=== PATIENT | female | born 1990 | race Hispanic/Latino ===

== ENCOUNTER 2020-01-16 23:16 | Emergency (ER) | payer SELFPAY ==
[2020-01-16 23:17] VITALS: BP 147/90; PULSE 102; RESP 22; TEMP 37.2; O2SAT 99
--- NOTE | 2020-01-16 23:24 | ECG_ITS ---
Measurements Intervals [place] Rate: 109 P: 28 MS: 160 QRS: 17 QRSD: 97 T: 18 QT: 332 QTc: 447 Interpretive Statements SINUS TACHYCARDIA BASELINE WANDER- I, II ABNORMAL ECG Electronically Signed On 01-17-2020 7:00:[address] Trejo D.O.
[2020-01-16 23:45] VITALS: PULSE 84
[2020-01-16 23:48] LABS: Basophils Absolute Auto 0.1 K/mm3 (0.0-0.1); Basophils Percent Auto 0.6 % (0.2-1.2); Eosinophils Absolute Auto 0.8 K/mm3 (0-0.3); Eosinophils Percent Auto 6.3 % (0-4.4); Hematocrit 40.3 % (37.0-47.0); Hemoglobin 13.6 g/dL (12.0-15.0); Immature Granulocyte Percent A 0.8 % (0-0.5); Lymphocytes Absolute Auto 3.53 K/mm3 (0.9-3.2); Lymphocytes Percent Auto 28.3 % (18.3-44.2); Mean Corpuscular HGB Conc 33.7 g/dl (32-36); Mean Corpuscular Hemoglobin 28.2 pg (26-34); Mean Corpuscular Volume 83.6 fl (80-100); Mean Platelet Volume 10.4 fl (7.4-10.4); Monocytes Absolute Auto 0.7 K/mm3 (0.1-0.6); Monocytes Percent Auto 5.4 % (2.6-8.5); Neutrophils Absolute Auto 7.3 K/mm3 (1.3-6.7); Neutrophils Percent Auto 58.6 % (45.5-73.1); Platelet Count Result 287 k/mm3 (150-375); Red Blood Count 4.82 M/mm3 (4.2-5.4); Red Cell Distribution Width 12.9 % (11.5-14.5); White Blood Count 12.5 K/mm3 (4.5-10.0)
--- NOTE | 2020-01-16 23:49 | ED.ANXIETY ---
HPI - Anxiety General Chief Complaint: Syncope Stated Complaint: lightheaded Time Seen by Provider: 01/16/20 23:23 Source: patient and RN notes reviewed Mode of arrival: ambulatory Limitations: no limitations History of Present Illness HPI narrative: Pt is a 29 y/o female with a Hx of anxiety, who presents to the ED with c/o anxiety starting earlier today. She notes that she is prescribed Prozac, but states that she hasn't taken the medication for the past 2-3 weeks. Pt notes that she has had anxiety and shakiness throughout the day today. She states that she ate a sugary cake this evening, which caused her BS to elevate. Pt notes that she soon developed numbness/tingling in her throat, which prompted her to come to the ED. She also reports recent rhinorrhea, sore throat, cough, and diarrhea. Pt denies any fever. She states that she smoked marijuana earlier today to try to reduce her anxiety. MD complaint: anxiety Onset (ago): day(s) (1) Symptoms: perioral numbness/tingling and other (shakiness) Provoking factors: other (lack of prescribed Prozac) Associated symptoms: other (rhinorrhea; sore throat; cough; diarrhea) Related Data Allergies Allergy/AdvReac Type Severity Reaction Status Date / Time No Known Allergies Allergy Mild Unverified 08/09/14 18:23 Review of Systems Review of Systems: All systems reviewed & are unremarkable except as noted in HPI and below Constitutional: Constitutional: Denies fever(s) and Reports other (shakiness) ENT: Reports nasal discharge and Reports sore throat Respiratory: Respiratory: Reports cough Gastrointestinal: Gastrointestinal: Reports diarrhea Neurologic: Reports numbness (numbness/tingling in throat) Psychiatric: Psychiatric: Reports anxiety [facility] Past Medical History Medical History Anxiety HTN (hypertension) Inguinal hernia Surgical History Surgical History Hx of inguinal hernia repair Social History Social History Smoking status: Never smoker Exam Narrative: Exam Narrative: GENERAL: Well-appearing, obese, and in no acute distress. HEAD: Normocephalic, atraumatic. ENT: Mucous membranes moist. No pharyngeal erythema or tonsillar exudate. CHEST: Clear to auscultation. No respiratory distress. HEART: Regular rate and rhythm. Normal peripheral pulses. ABDOMEN: Soft, nontender, nondistended. EXTREMITIES: Normal range of motion. No edema. SKIN: Warm, dry, no rash. NEURO: Alert and oriented x3. PSYCH: Normal mood and affect. Course Course Emergency Course: Informed of results. Hydrated. Discharge home. Vital Signs Vital signs: Vital Signs Temperature 98.9 F 01/16/20 23:17 Pulse Rate 102 H 01/16/20 23:17 Respiratory Rate 22 H 01/16/20 23:17 Blood Pressure 147/90 H 01/16/20 23:17 Pulse Oximetry 99 01/16/20 23:17 Temperature 98.9 F 01/16/20 23:17 Pulse Rate 96 01/17/20 00:40 Respiratory Rate 20 01/17/20 00:40 Blood Pressure 111/67 01/17/20 00:40 Pulse Oximetry 97 01/17/20 00:40 MDM - Anxiety Lab Data Result diagrams: 01/16/20 23:42 01/16/20 23:42 Labs: Lab Results 01/16/20 01/16/20 01/16/20 Range/Units 23:41 23:42 23:42 WBC 12.5 H (4.5-10.0) K/mm3 RBC 4.82 (4.2-5.4) M/mm3 Hgb 13.6 (12.0-15.0) g/dL Hct 40.3 (37.0-47.0) % MCV 83.6 (80-100) fl MCH 28.2 (26-34) pg MCHC 33.7 (32-36) g/dl RDW 12.9 (11.5-14.5) % Plt Count 287 (150-375) k/mm3 MPV 10.4 (7.4-10.4) fl Immature Gran % (Auto) 0.8 H (0-0.5) % Neut % (Auto) 58.6 (45.5-73.1) % Lymph % (Auto) 28.3 (18.3-44.2) % [place] % (Auto) 5.4 (2.6-8.5) % Eos % (Auto) 6.3 H (0-4.4) % Baso % (Auto) 0.6 (0.2-1.2) % Lymph # (Auto) 3.53 H (0.9-3.2) K/mm3 [place] # (Auto) 0.7 H (0.1-0.6) K/mm3 Eos # (Auto) 0.8 H (0-0.
[2020-01-16 23:56] VITALS: BP 114/75; BP 118/80; PULSE 103; PULSE 110
[2020-01-16 23:58] VITALS: BP 116/71; PULSE 120
[2020-01-16 23:59] VITALS: BP 128/70; PULSE 108
[2020-01-17] VITALS: BP 132/77; BP 137/105; PULSE 121; PULSE 122
[2020-01-17] LABS: Blood Urea Nitrogen 9 mg/dL (7-17); Calcium 9.2 mg/dL (8.4-10.2); Carbon Dioxide 24 mmol/L (22-30); Chloride 105 mmol/L (98-107); Estimated Glomerular Filt Rate > 60; Glucose 151 mg/dL (65-105); Potassium 3.7 mmol/L (3.4-5.0); Sodium 138 mmol/L (137-145)
[2020-01-17] MEDS: SODIUM CHLORIDE 0.9% IV 1,000 ML 999 ML IV CONT (00:24)
[2020-01-17 00:38] LABS: Add Urine Microscopic? YES; Appearance Urine Cloudy (Clear); Bacteria Urine Trace /hpf; Bilirubin Urine Negative (Negative); Blood Urine 2+ (Negative); Color Urine Yellow (Yellow); Glucose Urine UA Negative (Negative); Ketones Urine Negative (Negative); Leukocyte Esterase Ur 3+ LEU/UL (Negative); Mucus Urine Rare /lpf; Nitrate Urine Negative (Negative); Protein Urine Negative (Negative); Specific Grav Ur 1.006 (1.001-1.035); Squamous Epithelial Cell Urine Many /hpf (Few); Urobilinogen Urine Negative mg/dL (<2.0); WBC Urine 31-50 /hpf
[2020-01-17 00:40] VITALS: BP 111/67; PULSE 96; RESP 20; O2SAT 97
[2020-01-17 01:25] VITALS: BP 100/57; PULSE 96; RESP 12; O2SAT 96
== END 2020-01-17 01:25 | disposition home or self-care (01) ==
PROVIDERS: Emergency Provider Emergency Medicine; PCP Registered Nurse
DX: F41.9 Anxiety disorder, unspecified (principal); N39.0 Urinary tract infection, site not specified; I10 Essential (primary) hypertension; R00.0 Tachycardia, unspecified
CPT/HCPCS: 36415; 80048; 81001; 81025; 85025; 87086; 87088; 93005; 96360; 99284; J7030

== ENCOUNTER 2022-10-12 21:59 | Emergency (ER) | payer SELFPAY ==
--- NOTE | ~2022-10-12 | XR_ITS ---
EXAMINATION: XR chest 2V 10/12/2022 22:26 INDICATION: Dizziness. Hypertension. PROCEDURE: 2 view chest COMPARISON: 08/09/2014 FINDINGS: The lungs are clear. The cardiomediastinal silhouette is within normal limits. There are no pleural effusions. There is no pneumothorax suspected. IMPRESSION: 1: NO ACUTE CARDIOPULMONARY DISEASE. Reviewed, dictated and finalized at location A. TRUCTION SPECIALIST
--- NOTE | ~2022-10-12 | CT_ITS ---
EXAMINATION: CTA chest PE protocol DATE: 10/13/2022 00:23 INDICATION: Dizziness, tachycardia, elevated d-dimer TECHNIQUE: Computed tomography angiography (CTA) of the chest was performed with 100 mL Omnipaque-350 intravenous contrast timed to evaluate the pulmonary arteries. Coronal maximum intensity projection 3D-reconstructions were created by the technologist. Automated exposure control and iterative reconst ruction technique were employed. Exam dose: 718.32 mGy-cm total exam DLP. COMPARISON: 10/12/2022 2 view chest FINDINGS: There is moderate opacification the pulmonary arteries. There is respiratory motion which l imits evaluation of the peripheral pulmonary arteries. No central pulmonary embolus is identified. No pulmonary infiltrate or consolidation. No thoracic aortic aneurysm or dissection. No hilar or mediastinal mass lesion or lymphadenopathy. He art size is within normal limits. No pericardial or pleural effusion. Normal morphology of the adrenal glands. Included skeletal structures are unremarkable. IMPRESSION: Limited examination peripheral pulmonary arteries due to motion; no central pulmonary em bolus is identified Reviewed, dictated and finalized at Location [facility]. Reviewed, dictated and finalized at location B. ARMS EXPERT IMPRESSION: Limited examination peripheral pulmonary arteries due to motion; n o central pulmonary embolus is identified
[2022-10-12 22:04] VITALS: BP 136/80; PULSE 93; RESP 20; TEMP 37.1; O2SAT 100
--- NOTE | 2022-10-12 22:04 | ECG_ITS ---
Measurements Intervals [place] Rate: 84 P: 34 CT: 274 QRS: 19 QRSD: 103 T: 32 QT: 310 QTc: 368 Interpretive Statements SINUS RHYTHM WITH SINUS ARRHYTHMIA WITH FIRST DEGREE AV BLOCK NONSPECIFIC ST AND T-WAVE ABNORMALITY COMPARED TO ECG 01/16/2020 23:24:14 SINUS RHYTHM NOW PRESENT SINUS ARRHYTHMIA NOW PRESENT FIRST DEGREE AV BLOCK NOW PRESENT Electronically Signed On 10-13-2022 11:17:03 SUPPLY CHAIN PLANNER by Armin Nielsen M.D.
--- NOTE | 2022-10-12 22:14 | ED.GENADULT ---
HPI - General Adult General Chief complaint: Unspecified Stated complaint: heart palpitations Time Seen by Provider: 10/12/22 22:10 Source: patient Mode of arrival: ambulatory Limitations: no limitations History of Present Illness HPI narrative: This is a 32 year old female that presents to the ER for multiple complaints ongoing today. Reports palpitations, nausea, dizziness, and lightheadedness. Reports pain and paresthesias in her feet. Denies fever, cough, chest pain, abdominal pain, vomiting. Related Data Allergies Allergy/AdvReac Type Severity Reaction Status Date / Time No Known Allergies Allergy Mild Verified 10/12/22 22:09 Review of Systems Review of Systems: CONSTITUTIONAL: Reports chills. Denies fever EYES: Reports visual changes. Denies redness, or discharge. ENT: Denies congestion, sore throat, or otalgia. CARDIOVASCULAR: Reports palpitations. Denies chest pain, or edema. RESPIRATORY: Denies cough or dyspnea. GASTROINTESTINAL: Reports nausea and diarrhea. Denies abdominal pain, vomiting GENITOURINARY: Denies dysuria or hematuria. SKIN: Denies rash NEUROLOGIC: Reports generalized weakness. Denies headache All systems reviewed & are unremarkable except as noted in HPI and below PMFSH Past Medical History Medical History (Updated 10/13/22 @ 02:21 by Mireya Hawkins PA-C) Anxiety History of hyperlipidemia HTN (hypertension) Inguinal hernia Surgical History Surgical History Hx of inguinal hernia repair Social History Social History (Updated 10/12/22 @ 22:36 by Mireya Hawkins PA-C) Smoking status: Never smoker Alcohol intake: never Substance use: never Exam Narrative: GENERAL: Well-appearing, well-nourished, and in no acute distress. HEAD: Normocephalic, atraumatic. EYES: PERRLA and EOMI. ENT: Nares clear, no rhinorrhea or epistaxis. Mucous membranes moist. Oropharynx without tonsillar hypertrophy exudate or other lesions. Bilateral TMs pearly lobo non-bulging NECK: Supple. No adenopathy or masses. CHEST: Clear to auscultation. No respiratory distress. No wheezes rales or rhonchi HEART: Regular rate and rhythm. No murmur heard. Normal peripheral pulses. ABDOMEN: Soft, nontender, nondistended, normal active bowel sounds. EXTREMITIES: Normal range of motion. No edema. Strength equal in bilateral upper and lower extremities (5/5). Normal DP pulses SKIN: Warm, dry, no rash. NEURO: No focal deficits. Alert and oriented x3. Cranial nerves II through XII grossly intact PSYCH: Normal mood and affect Course Vital Signs Vital signs: Vital Signs Temperature 98.8 F 10/12/22 22:04 Pulse Rate 93 10/12/22 22:04 Respiratory Rate 20 10/12/22 22:04 Blood Pressure 136/80 10/12/22 22:04 Pulse Oximetry 100 10/12/22 22:04 Oxygen Delivery Room Air 10/12/22 22:04 Temperature 98.8 F 10/12/22 22:04 Pulse Rate 87 10/13/22 01:04 Respiratory Rate 28 H 10/13/22 01:04 Blood Pressure 127/72 10/12/22 22:16 Pulse Oximetry 97 10/13/22 01:04 Oxygen Delivery Room Air 10/12/22 22:04 Medical Decision Making [facility] Narrative Medical decision making narrative: Patient presents to the emergency department for several symptoms that had been ongoing today. Largely reporting feelings of her heart racing. Patient has remained in normal sinus rhythm while in the ED. Her vitals are stable. She is afebrile and nontoxic-appearing. She is neurologically intact. CBC with mild leukocytosis to 13.4. Hemoglobin is normal. No concerning findings on metabolic panel. UA without evidence of infection, likely a contaminated catch. Influenza and COVID screens are negative. Bedside test is negative. D-dimer was elevated, so CTA of the chest was obtained. No evidence of PE or acute cardiopulmonary abnormality. No concerning changes on EKG compared to her previous EKG. Patient and family updated on case findings. She reports impr
[2022-10-12 22:15] VITALS: BP 127/72; PULSE 83; PULSE 88; RESP 26; O2SAT 99
[2022-10-12 22:16] VITALS: BP 127/72; PULSE 90; RESP 13; O2SAT 100
[2022-10-12 22:23] LABS: Basophils Absolute Auto 0.1 K/mm3 (0.0-0.1); Basophils Percent Auto 0.4 % (0.2-1.2); Eosinophils Absolute Auto 0.2 K/mm3 (0-0.3); Eosinophils Percent Auto 1.1 % (0-4.4); Hematocrit 42.3 % (37.0-47.0); Hemoglobin 14.5 g/dL (12.0-15.0); Immature Granulocyte Absolute 0.04 K/mm3 (0.00-0.031); Immature Granulocyte Percent A 0.3 % (0-0.5); Lymphocytes Absolute Auto 2.63 K/mm3 (0.9-3.2); Lymphocytes Percent Auto 19.7 % (18.3-44.2); Mean Corpuscular HGB Conc 34.3 g/dl (32-36); Mean Corpuscular Hemoglobin 29.1 pg (26-34); Mean Corpuscular Volume 84.8 fl (80-100); Mean Platelet Volume 9.9 fl (7.4-10.4); Monocytes Absolute Auto 0.8 K/mm3 (0.1-0.6); Monocytes Percent Auto 6.2 % (2.6-8.5); Neutrophils Absolute Auto 9.6 K/mm3 (1.3-6.7); Neutrophils Percent Auto 72.3 % (45.5-73.1); Platelet Count Result 295 k/mm3 (150-375); Red Blood Count 4.99 M/mm3 (4.2-5.4); Red Cell Distribution Width 13.1 % (11.5-14.5); White Blood Count 13.4 K/mm3 (4.5-10.0)
[2022-10-12] MEDS: SODIUM CHLORIDE 0.9% IV 1,000 ML 999 ML IV CONT (22:24)
[2022-10-12 22:34] LABS: Alanine Aminotransferase 23 U/L (6-35); Alkaline Phosphatase 57 U/L (38-126); Anion Gap 8 mmol/L (8-16); Aspartate Amino Transferase 25 U/L (14-36); Bilirubin,Total 0.4 mg/dL (0.2-1.3); Blood Urea Nitrogen 16 mg/dL (7-17); Calcium 9.6 mg/dL (8.4-10.2); Carbon Dioxide 34 mmol/L (22-30); Chloride 99 mmol/L (98-107); Estimated CRCL calculation 119 ml/min; Estimated Glomerular Filt Rate > 60; Glucose 111 mg/dL (65-110); Potassium 3.9 mmol/L (3.4-5.0); Sodium 141 mmol/L (137-145)
[2022-10-12 23:10] LABS: Appearance Urine Clear (Clear); Bilirubin Urine Negative (Negative); Blood Urine 3+ (Negative); Color Urine Yellow (Yellow); Glucose Urine UA Negative (Negative); Ketones Urine Negative (Negative); Leukocyte Esterase Ur 1+ LEU/UL (Negative); Nitrate Urine Negative (Negative); Protein Urine 1+ mg/dL (Negative); Urobilinogen Urine 0.2 mg/dL (<2.0); pH Urine 6.5 (5.0-9.0)
[2022-10-12 23:11] LABS: D Dimer 0.49 ug/mL (<0.48)
[2022-10-12 23:13] LABS: Mucus Urine Rare /lpf; RBC Urine 21-50 /hpf (0-2); Squamous Epithelial Cell Urine Occasional /hpf (Few)
[2022-10-12 23:15] VITALS: PULSE 93; RESP 19; O2SAT 100
[2022-10-12] MEDS: ONDANSETRON INJ 4 MG/2 ML VIAL IV PUSH (23:17)
[2022-10-12] MEDS: MECLIZINE HCL 25 MG TABLET PO (23:17)
[2022-10-12 23:28] LABS: Add Urine Microscopic? YES
[2022-10-12 23:30] VITALS: PULSE 91; RESP 22; O2SAT 100
[2022-10-12 23:30] LABS: Influenza A QL RT-PCR Negative (Negative); Influenza B QL RT-PCR Negative (Negative); SARS-CoV-2 RNA PCR Negative
[2022-10-12 23:49] VITALS: PULSE 91; RESP 25; O2SAT 100
[2022-10-13] VITALS: PULSE 79; RESP 25; O2SAT 95
[2022-10-13 00:23] VITALS: PULSE 103; RESP 16; O2SAT 99
[2022-10-13 00:30] VITALS: PULSE 87; RESP 20; O2SAT 98
[2022-10-13 00:45] VITALS: PULSE 85; RESP 19; O2SAT 99
[2022-10-13 01:04] VITALS: PULSE 87; RESP 28; O2SAT 97
== END 2022-10-13 02:34 | disposition home or self-care (01) ==
PROVIDERS: Emergency Provider Physician Assistant; PCP Registered Nurse
DX: R00.2 Palpitations (principal); R42 Dizziness and giddiness; Z20.822 Contact with and (suspected) exposure to COVID-19; E78.5 Hyperlipidemia, unspecified; I10 Essential (primary) hypertension; I44.0 Atrioventricular block, first degree; R94.31 Abnormal electrocardiogram [ECG] [EKG]
CPT/HCPCS: 36415; 71046; 71275; 80053; 81001; 81025; 85025; 85380; 87636; 93005; 96361; 96365; 96375; 99284; A9270; J0131; J2405; J7030; Q9967

== ENCOUNTER 2023-07-30 21:57 | Emergency (ER) | payer SELFPAY ==
--- NOTE | ~2023-07-30 | XR_ITS ---
XR chest 2V DATE: 07/30/2023 22:42 INDICATION: Chest pain with intermittent shortness of breath TECHNIQUE: PA and lateral views COMPARISON: 10/13/2022 CTA chest 10/12/2022 2 view chest FINDINGS: Normal heart size. No hilar or mediastinal enlargement. No pulmonary infiltrate or consolid ation, pleural effusion or pulmonary vascular congestion or pneumothorax. IMPRESSION: No active cardiopulmonary disease Reviewed, dictated and finalized at location A.
--- NOTE | 2023-07-30 22:05 | ECG_ITS ---
Measurements Intervals [place] Rate: 82 P: -18 MT: 144 QRS: 0 QRSD: 104 T: 9 QT: 358 QTc: 419 Interpretive Statements SINUS RHYTHM NORMAL ECG COMPARED TO ECG 10/12/2022 22:11:56 NO SIGNIFICANT CHANGES Electronically Signed On 07-31-2023 6:22:[address] Trejo D.O.
[2023-07-30 22:07] VITALS: BP 136/88; PULSE 79; RESP 18; TEMP 37; O2SAT 98
[2023-07-30 22:39] LABS: Basophils Absolute Auto 0.1 K/mm3 (0.0-0.1); Basophils Percent Auto 0.5 % (0.2-1.2); Eosinophils Absolute Auto 0.4 K/mm3 (0-0.3); Eosinophils Percent Auto 3.1 % (0-4.4); Hematocrit 38.4 % (37.0-47.0); Hemoglobin 12.9 g/dL (12.0-15.0); Immature Granulocyte Absolute 0.06 K/mm3 (0.00-0.031); Immature Granulocyte Percent A 0.5 % (0-0.5); Lymphocytes Absolute Auto 3.57 K/mm3 (0.9-3.2); Lymphocytes Percent Auto 30.5 % (18.3-44.2); Mean Corpuscular HGB Conc 33.6 g/dl (32-36); Mean Corpuscular Hemoglobin 28.5 pg (26-34); Mean Corpuscular Volume 84.8 fl (80-100); Mean Platelet Volume 10.1 fl (7.4-10.4); Monocytes Absolute Auto 0.7 K/mm3 (0.1-0.6); Monocytes Percent Auto 6.3 % (2.6-8.5); Neutrophils Absolute Auto 6.9 K/mm3 (1.3-6.7); Neutrophils Percent Auto 59.1 % (45.5-73.1); Platelet Count Result 303 k/mm3 (150-375); Red Blood Count 4.53 M/mm3 (4.2-5.4); Red Cell Distribution Width 13.2 % (11.5-14.5); White Blood Count 11.7 K/mm3 (4.5-10.0)
[2023-07-30 22:48] LABS: Alanine Aminotransferase 29 U/L (6-35); Albumin Level 4.4 g/dL (3.5-5.1); Alkaline Phosphatase 51 U/L (38-126); Anion Gap 8 mmol/L (8-16); Aspartate Amino Transferase 34 U/L (14-36); Bilirubin,Total 0.3 mg/dL (0.2-1.3); Blood Urea Nitrogen 10 mg/dL (7-17); Calcium 9.1 mg/dL (8.4-10.2); Carbon Dioxide 32 mmol/L (22-30); Chloride 100 mmol/L (98-107); Estimated CRCL calculation 124 ml/min; Estimated Glomerular Filt Rate > 60; Glucose 128 mg/dL (65-110); Lipase 97 U/L (23-300); Sodium 140 mmol/L (137-145)
[2023-07-30 22:54] LABS: INR 0.9; Prothrombin Time 12.9 Seconds (11.1-14.7)
--- NOTE | 2023-07-30 22:54 | PC.NURSE ---
Report given to HI Brnoson. Care of pt transferred.
[2023-07-30 22:55] VITALS: BP 121/64; PULSE 75; RESP 16; O2SAT 99
--- NOTE | 2023-07-30 22:55 | PC.NURSE ---
Assumed care of pt from HI Soares at this time.
[2023-07-30 23:00] LABS: Troponin I < 0.012 ng/mL (0.000-0.034)
[2023-07-30 23:14] VITALS: PULSE 75
[2023-07-30 23:31] VITALS: BP 116/64; PULSE 81; RESP 12; O2SAT 99
[2023-07-30 23:46] VITALS: BP 128/78; PULSE 78; RESP 20; O2SAT 99
[2023-07-31 00:02] VITALS: BP 136/76; PULSE 77; RESP 19; O2SAT 100
--- NOTE | 2023-07-31 00:24 | ED.CHESTPAIN ---
HPI - Chest Pain General Chief Complaint: Chest Pain Stated Complaint: chest pain, short of breath Time Seen by Provider: 07/30/23 23:39 Source: patient Mode of arrival: ambulatory Limitations: no limitations History of Present Illness HPI narrative: This is a 33 year old female that presents to the ER for palpitations. Ongoing over the last couple of days. Reports some discomfort in her chest when this occurs. Denies fever, cough, shortness of breath, or lower extremity edema. Related Data Allergies Allergy/AdvReac Type Severity Reaction Status Date / Time No Known Allergies Allergy Mild Verified 10/12/22 22:09 Review of Systems Review of Systems: CONSTITUTIONAL: Denies fever CARDIOVASCULAR: Reports chest pain, palpitations. Denies edema. RESPIRATORY: Denies dyspnea. All systems reviewed & are unremarkable except as noted in HPI and below PMFSH Past Medical History Medical History (Updated 07/31/23 @ 00:25 by Mireya Hawkins PA-C) Anxiety History of hyperlipidemia HTN (hypertension) Inguinal hernia Surgical History Surgical History Hx of inguinal hernia repair Social History Social History (Updated 10/12/22 @ 22:36 by Mireya Hawkins PA-C) Smoking status: Never smoker Alcohol intake: never Substance use: never Exam Narrative: GENERAL: Well-appearing, well-nourished, and in no acute distress. HEAD: Normocephalic, atraumatic. EYES: EOMI. CHEST: Clear to auscultation. No respiratory distress. No wheezes rales or rhonchi HEART: Regular rate and rhythm. No murmur heard. Normal peripheral pulses. EXTREMITIES: Normal range of motion. No edema. SKIN: Warm, dry, no rash. NEURO: No focal deficits. Alert and oriented x3. PSYCH: Normal mood and affect Course Course Emergency Course: patient was updated on workup and agrees with plan of care Vital Signs Vital signs: Vital Signs Temperature 98.6 F 07/30/23 22:07 Pulse Rate 79 07/30/23 22:07 Respiratory Rate 18 07/30/23 22:07 Blood Pressure 136/88 07/30/23 22:07 Pulse Oximetry 98 07/30/23 22:07 Oxygen Delivery Room Air 07/30/23 22:07 Temperature 98.6 F 07/30/23 22:07 Pulse Rate 77 09/22/23 00:02 Respiratory Rate 19 07/31/23 00:02 Blood Pressure 136/76 07/31/23 00:02 Pulse Oximetry 100 07/31/23 00:02 Oxygen Delivery Room Air 07/30/23 22:07 MDM - Chest Pain MDM Narrative Medical decision making narrative: Patient presents to the emergency department for palpitations ongoing over the last couple of days. Her vitals are stable. She is in no acute distress. EKG shows normal sinus rhythm. CBC with mild leukocytosis to 11.7. Metabolic panel without concerning findings. Baseline troponin is negative. Chest x-ray without acute cardiopulmonary abnormality. While I was in the room patient had a PVC noted on the monitor. It seems as though this is what she is symptomatic with. I will order for her to have a Holter monitor placed and was instructed she should have follow-up with her primary doctor. She was given warnings to return to the ER Differential Diagnosis Differential diagnosis: Likely atypical chest pain, costochondritis, chest pain and other (palpitations, PVCs) Lab Data Attestation: I reviewed the patient's lab results. 07/30/23 22:34 07/30/23 22:34 Labs: Lab Results 07/30/23 Range/Units 22:34 WBC 11.7 H (4.5-10.0) K/mm3 RBC 4.53 (4.2-5.4) M/mm3 Hgb 12.9 (12.0-15.0) g/dL Hct 38.4 (37.0-47.0) % MCV 84.8 (80-100) fl MCH 28.5 (26-34) pg MCHC 33.6 (32-36) g/dl RDW 13.2 (11.5-14.5) % Plt Count 303 (150-375) k/mm3 MPV 10.1 (7.4-10.4) fl Immature Gran % (Auto) 0.5 (0-0.5) % Neut % (Auto) 59.1 (45.5-73.1) % Lymph % (Auto) 30.5 (18.3-44.2) % [place] % (Auto) 6.3 (2.6-8.5) % Eos % (Auto) 3.1 (0-4.4) % Baso % (Auto) 0.5 (0.2-1.2) % Lymph # (Auto) 3.57 H (
== END 2023-07-31 00:41 | disposition home or self-care (01) ==
PROVIDERS: Student in an Organized Health Care Education/Training Program; Emergency Provider Physician Assistant; PCP Registered Nurse
DX: R00.2 Palpitations (principal); E78.5 Hyperlipidemia, unspecified; I10 Essential (primary) hypertension
CPT/HCPCS: 36415; 71046; 80053; 83690; 84484; 85025; 85610; 85730; 93005; 99284

== ENCOUNTER 2024-07-06 10:14 | Emergency (ER) | payer SELFPAY ==
[2024-07-06 10:15] VITALS: BP 145/90; PULSE 88; RESP 18; TEMP 36.4; O2SAT 100
--- NOTE | 2024-07-06 10:18 | ED.SKABFB ---
HPI - Skin/Abscess/Foreign Bdy General Chief complaint: Skin/Abscess/Foreign Body Stated complaint: rash Time Seen by Provider: 07/06/24 10:18 History of Present Illness HPI narrative: 33-year-old female no significant chronic medical complaints presents to the emergency room for a umbilical rash. Patient states the rash began on Thursday after rubbing and unknown herbal substance into her umbilicus. States 2 days later she began developing a painful and pruritic rash with purulent discharge. Patient has been taking ampicillin that was given to her by a family member from [place]. Denies any improvement in her rash. Related Data Allergies Allergy/AdvReac Type Severity Reaction Status Date / Time No Known Allergies Allergy Mild Verified 10/12/22 22:09 Review of Systems Review of Systems: ROS unremarkable except for noted in HPI PMFSH Past Medical History Medical History Anxiety History of hyperlipidemia HTN (hypertension) Inguinal hernia Surgical History Surgical History Hx of inguinal hernia repair Social History Social History Smoking status: Never smoker Alcohol intake: never Substance use: never Exam Narrative: GENERAL: Well-appearing, well-nourished, no physical limitations, and in no acute distress. HEAD: Normocephalic, atraumatic. EYES: Conjunctivae normal, PERRLA and EOMI. CHEST: Clear to auscultation. No respiratory distress. No wheezes rales or rhonchi. HEART: Regular rate and rhythm. No murmur heard. Normal peripheral pulses. ABDOMEN: Soft, nontender, nondistended, normal active bowel sounds. SKIN: Warm, dry, no rash. umbilicus: area of scabbing noted with minimal surrounding erythema. No obvious purulent drainage. NEURO: No focal deficits. Alert and oriented x3. MAEW. CN's II-XI intact bilaterally, normal gait PSYCH: Cooperative. Normal mood and affect. Discharge Plan Discharge Clinical Impression: Abscess of skin or subcutaneous tissue, Contact dermatitis Patient Disposition: Home, Self-Care Condition: Stable Instructions: Antibiotic Form Prescriptions: New clindamycin HCl 300 mg capsule 300 mg PO Q6H 7 Days Qty: 28 0RF No Action nitrofurantoin monohyd/m-cryst [Macrobid] 100 mg capsule 100 mg PO Q12H 7 Days Qty: 14 0RF Rx Instructions: must administer with a meal/food Follow-up/Referrals: Brandy,LUIS Osei [Primary Care Provider] - Cynthia Fang DO [Physician] - Time of Disposition: 10:21
== END 2024-07-06 10:48 | disposition home or self-care (01) ==
LOC: ANHED 10:40
PROVIDERS: Emergency Provider Nurse Practitioner Family; PCP Registered Nurse
DX: L02.216 Cutaneous abscess of umbilicus (principal); L25.9 Unspecified contact dermatitis, unspecified cause; I10 Essential (primary) hypertension; E78.5 Hyperlipidemia, unspecified
CPT/HCPCS: 99283

== ENCOUNTER 2025-06-11 10:39 | Emergency (ER) | payer SELFPAY ==
--- NOTE | ~2025-06-11 | CT_ITS ---
EXAMINATION: CT abdomen pelvis w con DATE: 06/11/2025 14:43 INDICATION: RLQ and right flank pain TECHNIQUE: Computed tomography (CT) of the abdomen and pelvis was performed with 100 mL Omnipaque-350 intravenous contrast. Automated exposure control and iterative reconstruction technique were employe d. The dose-length product was 955.74 mGy-cm. COMPARISON: None. FINDINGS: Lower thorax: Mild lingular and right middle lobe atelectasis/scar Liver: Enlarged. Biliary/Gallbladder: Gallbladder is normal. No bile duct dilation. Pancreas: No mass or duct dilation. Spleen: Normal. Adrenals:No mass. Kidneys: No suspicious mass, obstructing stone, or hydronephrosis. 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 GI tract: No small or large bowel dilation. Normal appendix. Mesentery/Peritoneum: No ascites, mass, or free air. Retroperitoneum: No mass. Pelvis: Mostly empty urinary bladder. Normal uterus. Normal left ovary. 9.0 cm fluid density cystic l esion associated with the right ovary. Likely corpus luteal cyst on the right. Trace pelvic fluid, wi thin physiologic range. Soft Tissues: Small uncomplicated appearing fat-containing umbilical hernia. Bones: No acute osseous finding. IMPRESSION: Hepatomegaly. 9 cm simple appearing right adnexal cyst associated with the right ovary. No twisting of the right ov krysten vascular pedicle to suggest torsion. Consider transabdominal and endovaginal pelvic ultrasound for further characterization. Reviewed, dictated and finalized at location K. IMPRESSION: Hepatomegaly. 9 cm simple appearing right adnexal cyst associated with the right ovary. No tw isting of the right ovarian vascular pedicle to suggest torsion. Consider trans abdominal and endovaginal pelvic ultrasound for further characterization.
--- NOTE | ~2025-06-11 | US_ITS ---
EXAMINATION: US pelvic complete w TV DATE: 06/11/2025 16:58 INDICATION: Eval for ovarian torsion TECHNIQUE: Multiple transabdominal and endovaginal sonographic images of the pelvis were obtained. COMPARISON: CT abdomen pelvis 06/11/2025 FINDINGS: Uterus: 8.6 x 4.7 x 5.7 cm. Endometrial complex measures 8 mm. Right Ovary: 4.0 x 2.8 x 3.3 cm. Vascular flow is present. Circumscribed, smooth walled anechoic cyst ic structure associated with the right ovary, measuring 8.5 x 6.2 x 5.2 cm, with a thin septation and possible daughter cyst. Minimal septal vascular flow. Left Ovary: 3.4 x 2.2 x 3.7 cm. Vascular flow is present. No adnexal mass. There is small volume likely physiologic free fluid in the pelvis. IMPRESSION: No sonographic evidence of torsion. 8.5 cm right ovarian cyst, likely large functional/follicular cyst, recommend sonographic follow-up i n 2-months for resolution/3 characterization. Reviewed, dictated and finalized at location K. IMPRESSION: No sonographic evidence of torsion. 8.5 cm right ovarian cyst, likely large functional/follicular cyst, recommend s onographic follow-up in 2-months for resolution/3 characterization.
--- OUTSIDE RECORDS SUMMARY | 2025-06-11 10:41 | XMS_ITS | Referral Summary ---
Author Organization [facility] Address [address] [place] [address] Care Team Providers Care Chain Saw Driver Name Role Phone No, Physician Primary Care Provider [phone] Allergies No known active allergies Social History Tobacco Use Types Packs/Day Years Used Date Smoking Tobacco: Never Assessed Personal Safety Answer Date Recorded Getting School Help Needed Not on file 01/23 Comments Unknown Sex and Gender Information Value Date Recorded Sex Assigned at Not on file Legal Sex Female 3:26 AM FLORAL MERCHANDISER Gender Identity Not on file Sexual Orientation Not on file Last Filed Vital Signs Vital Sign Reading Time Taken Comments Blood Pressure 133/74 12/26/2021 1:15 PM FLORAL MERCHANDISER Pulse 65 12/26/2021 1:15 PM FLORAL MERCHANDISER Temperature 36.8 C (98.3 F) 12/26/2021 10:05 AM FLORAL MERCHANDISER Respiratory Rate 18 12/26/2021 1:15 PM FLORAL MERCHANDISER Oxygen Saturation 99% 12/26/2021 1:15 PM FLORAL MERCHANDISER Inhaled Oxygen Concentration - - Weight 117.9 kg (260 lb) 12/26/2021 10:05 AM FLORAL MERCHANDISER Height - - Body Mass Index - - Plan of Treatment Not on file Care Teams Chain Saw Driver Relationship Specialty Start Date End Date No, Physician PCP - General 12/26/21
--- OUTSIDE RECORDS SUMMARY | 2025-06-11 10:41 | XMS_ITS | Clinical Summary ---
Author Organization [facility] Address [address] [place] [id number] Care Team Providers Care Hoist Operator Name Role Phone No, Physician Primary Care Provider [phone] Allergies No known active allergies Social History Tobacco Use Types Packs/Day Years Used Date Smoking Tobacco: Never Assessed Personal Safety Answer Date Recorded Getting School Help Needed Not on file 01/23 Comments Unknown Sex and Gender Information Value Date Recorded Sex Assigned at Not on file Legal Sex Female 3:26 AM CONTRACT ATTORNEY Gender Identity Not on file Sexual Orientation Not on file Last Filed Vital Signs Vital Sign Reading Time Taken Comments Blood Pressure 133/74 12/26/2021 1:15 PM CONTRACT ATTORNEY Pulse 65 12/26/2021 1:15 PM CONTRACT ATTORNEY Temperature 36.8 C (98.3 F) 12/26/2021 10:05 AM CONTRACT ATTORNEY Respiratory Rate 18 12/26/2021 1:15 PM CONTRACT ATTORNEY Oxygen Saturation 99% 12/26/2021 1:15 PM CONTRACT ATTORNEY Inhaled Oxygen Concentration - - Weight 117.9 kg (260 lb) 12/26/2021 10:05 AM CONTRACT ATTORNEY Height - - Body Mass Index - - Plan of Treatment Health Maintenance Due Date Last Done Comments Cervical Cancer Screening 1991 Depression Screening 1991 Hepatitis C Screening 1991 Varicella Vaccines (2 of 2 - 2-dose childhood series) 1995 1994 Regular Well Visit/Exam 18-64 2009 DTaP/Tdap/Td Vaccine (8 - Td or Tdap) 10/12/2018 10/12/2008, 08/18/2001, 08/18/2001, Additional history exists Covid-19 Vaccine ( season) 2024 02/19/2021, 01/22/2021 Influenza Vaccine (#1) 2025 0, 10/12/2018, 10/11/2018, Additional history exists Hepatitis B Screening Completed 06/01/2012 , 02/23/2002, 08/18/2001 HPV Vaccines Completed 02/01/2016, 09/10, 07/20/2015 Pneumococcal vaccine <65 Aged Out 01/10/2020 No longer eligible based on patient's age to complete this topic Care Teams Hoist Operator Relationship Specialty Start Date End Date No, Physician PCP - General 12/26/21
[2025-06-11 12:48] VITALS: BP 136/84; PULSE 84; RESP 16; TEMP 36.4; O2SAT 99
[2025-06-11 13:09] LABS: BEDSIDEPREGUCG Negative (Negative)
[2025-06-11 13:12] LABS: Hematocrit 40.8 % (37.0-47.0); Hemoglobin 14.0 g/dL (12.0-15.0); Immature Granulocyte Percent A 0.6 % (0-0.5); Lymphocytes Absolute Auto 2.42 K/mm3 (0.9-3.2); Mean Corpuscular HGB Conc 34.3 g/dl (32-36); Mean Corpuscular Hemoglobin 29.2 pg (26-34); Mean Corpuscular Volume 85.0 fl (80-100); Nucleated Red Blood Cells Absolute Auto 0.000 K/mm3 (0.0-0.012); Nucleated Red Blood Cells Perc 0.0 % (0.0-0.2); Platelet Count Result 291 k/mm3 (150-375); Red Blood Count 4.80 M/mm3 (4.2-5.4); White Blood Count 12.1 K/mm3 (4.5-10.0)
[2025-06-11 13:13] LABS: Add Urine Microscopic? NO; Appearance Urine Clear (Clear); Glucose Urine UA Negative (Negative); Leukocyte Esterase Ur Negative LEU/UL (Negative); Nitrate Urine Negative (Negative); Specific Grav Ur 1.013 (1.001-1.035)
[2025-06-11 13:35] LABS: Alanine Aminotransferase 18 U/L (6-35); Albumin Level 4.4 g/dL (3.5-5.1); Alkaline Phosphatase 55 U/L (38-126); Anion Gap 9 mmol/L (4-12); Aspartate Amino Transferase 24 U/L (14-36); Bilirubin,Total 0.4 mg/dL (0.2-1.3); Blood Urea Nitrogen 10 mg/dL (7-17); Calcium 9.1 mg/dL (8.4-10.2); Carbon Dioxide 26 mmol/L (22-30); Chloride 100 mmol/L (98-107); Estimated Glomerular Filt Rate > 60; Glucose 128 mg/dL (65-110); Potassium 3.7 mmol/L (3.4-5.0); Sodium 135 mmol/L (137-145); Total Protein 7.8 g/dL (6.3-8.2)
--- OUTSIDE RECORDS SUMMARY | 2025-06-11 13:39 | XMS_ITS | Clinical Summary ---
Author Organization [facility] Address [address] [place] [id number] Care Team Providers Care Construction Contractor Name Role Phone No, Physician Primary Care Provider [phone] Allergies No known active allergies Social History Tobacco Use Types Packs/Day Years Used Date Smoking Tobacco: Never Assessed Personal Safety Answer Date Recorded Getting School Help Needed Not on file 01/23 Comments Unknown Sex and Gender Information Value Date Recorded Sex Assigned at Not on file Legal Sex Female 3:26 AM THREE KNIFE TRIMMER Gender Identity Not on file Sexual Orientation Not on file Last Filed Vital Signs Vital Sign Reading Time Taken Comments Blood Pressure 133/74 12/26/2021 1:15 PM THREE KNIFE TRIMMER Pulse 65 12/26/2021 1:15 PM THREE KNIFE TRIMMER Temperature 36.8 C (98.3 F) 12/26/2021 10:05 AM THREE KNIFE TRIMMER Respiratory Rate 18 12/26/2021 1:15 PM THREE KNIFE TRIMMER Oxygen Saturation 99% 12/26/2021 1:15 PM THREE KNIFE TRIMMER Inhaled Oxygen Concentration - - Weight 117.9 kg (260 lb) 12/26/2021 10:05 AM THREE KNIFE TRIMMER Height - - Body Mass Index - [...] age to complete this topic Care Teams Construction Contractor Relationship Specialty Start Date End Date No, Physician PCP - General 12/26/21
--- OUTSIDE RECORDS SUMMARY | 2025-06-11 13:39 | XMS_ITS | Referral Summary ---
Author Organization [facility] Address [address] [place] [address] Care Team Providers Care Machine Load Clerk Name Role Phone No, Physician Primary Care Provider [phone] Allergies No known active allergies Social History Tobacco Use Types Packs/Day Years Used Date Smoking Tobacco: Never Assessed Personal Safety Answer Date Recorded Getting School Help Needed Not on file 01/23 Comments Unknown Sex and Gender Information Value Date Recorded Sex Assigned at Not on file Legal Sex Female 3:26 AM NEUROLOGICAL SURGEON Gender Identity Not on file Sexual Orientation Not on file Last Filed Vital Signs Vital Sign Reading Time Taken Comments Blood Pressure 133/74 12/26/2021 1:15 PM NEUROLOGICAL SURGEON Pulse 65 12/26/2021 1:15 PM NEUROLOGICAL SURGEON Temperature 36.8 C (98.3 F) 12/26/2021 10:05 AM NEUROLOGICAL SURGEON Respiratory Rate 18 12/26/2021 1:15 PM NEUROLOGICAL SURGEON Oxygen Saturation 99% 12/26/2021 1:15 PM NEUROLOGICAL SURGEON Inhaled Oxygen Concentration - - Weight 117.9 kg (260 lb) 12/26/2021 10:05 AM NEUROLOGICAL SURGEON Height - - Body Mass Index - - Plan of Treatment Not on file Care Teams Machine Load Clerk Relationship Specialty Start Date End Date No, Physician PCP - General 12/26/21
[2025-06-11] MEDS: HYDROmorphone HCL INJ (*CRX) 2 MG/ML VIAL 1 MG IV PUSH ×2 (14:43→16:03)
[2025-06-11] MEDS: LACTATED RINGERS 1,000 ML 999 ML IV CONT (14:44)
--- NOTE | 2025-06-11 14:56 | ED.GENADULT ---
HPI - General Adult General Chief complaint: Back Pain/Injury Stated complaint: KIDNEY STONE? Time Seen by Provider: 06/11/25 13:34 History of Present Illness HPI narrative: 34-year-old female presents to the emergency department for evaluation for lower abdominal pain. Patient describes sharp right lower quadrant pain that feels like she needs to have a bowel movement. Patient denies any recent falls or injuries. Patient denies any change in bowel habits. Patient denies any vaginal bleeding vaginal discharge. Patient has no prior history of ovarian cyst. Patient is uncomfortable appearing at time of evaluation. Related Data Allergies Allergy/AdvReac Type Severity Reaction Status Date / Time No Known Allergies Allergy Mild Verified 10/12/22 22:09 Review of Systems Review of Systems: All systems reviewed & are unremarkable except as noted in HPI and below PMFSH Past Medical History Medical History Anxiety History of hyperlipidemia HTN (hypertension) Inguinal hernia Surgical History Surgical History Hx of inguinal hernia repair Social History Social History Smoking status: Never smoker Alcohol intake: never Substance use: never Exam Narrative: APPEARANCE: Well appearing, no pain, no distress, well-nourished. HEAD: normocephalic, atraumatic. EYES: PERRLA/EOMI, conjunctivae clear. NOSE: Normal no drainage EARS:TMS clear with good light reflex. THROAT: Pharynx clear, no exudate. NECK: Supple. No adenopathy, no masses. RESPIRATORY: Airway patent, respirations nonlabored. Clear to auscultation bilaterally, no rales, rhonchi, wheezing. CARDIOVASCULAR: Regular rate and rhythm without murmurs rubs or gallops. ABDOMINAL: Nonsurgical abdomen, no peritonitis, no significant tenderness to palpation, MUSCULOSKELETAL: Moves all extremities. Strength/ROM intact, No edema, No calf tenderness. NEURO: Alert. Cranial nerves II through XII intact. Good gait. Good coordination SKIN: Warm, dry. Normal Color Course Vital Signs Vital signs: Vital Signs Temperature 97.6 F 06/11/25 12:48 Pulse Rate 84 06/11/25 12:48 Respiratory Rate 16 06/11/25 12:48 Blood Pressure 136/84 06/11/25 12:48 Pulse Oximetry 99 06/11/25 12:48 Temperature 97.6 F 06/11/25 12:48 Pulse Rate 84 06/11/25 12:48 Respiratory Rate 16 06/11/25 12:48 Blood Pressure 136/84 06/11/25 12:48 Pulse Oximetry 99 06/11/25 12:48 Medical Decision Making MDM Narrative Medical decision making narrative: 34-year-old female presented to the emergency department for evaluation for lower abdominal pain. CT scan does show a large adnexal cyst with no suspected evidence of torsion. Ultrasound ordered and confirms a suspected follicular cyst with no evidence of torsion. Case was discussed with OB Gyne and Dr. Nguyen stated the patient's pain was controlled she can have outpatient follow-up. Patient will be discharged home with [place] for additional pain control. Differential Diagnosis Differential Diagnosis: Ovarian torsion, ovarian cyst, appendicitis, diverticulitis, kidney stone Vital Signs Vital Signs: Vital Signs Temperature 97.6 F 06/11/25 12:48 Pulse Rate 84 06/11/25 12:48 Respiratory Rate 16 06/11/25 12:48 Blood Pressure 136/84 06/11/25 12:48 Pulse Oximetry 99 06/11/25 12:48 Temperature 97.6 F 06/11/25 12:48 Pulse Rate 84 06/11/25 12:48 Respiratory Rate 16 06/11/25 12:48 Blood Pressure 136/84 06/11/25 12:48 Pulse Oximetry 99 06/11/25 12:48 Lab Data Lab results reviewed: Yes I reviewed the patient's lab results. 06/11/25 13:01 06/11/25 13:01 Labs: Lab Results 06/11/25 06/11/25 06/11/25 Range/Units 13:01 13:02 13:03 WBC 12.1 H (4.5-10.0) K/mm3 RBC 4.80 (4.2-5.4) M/mm3 Hgb 14.0 (12.0-15.0) g/dL Hct 40.8 (37.0-47.0) % MCV 85.0 (80-100) fl MCH 29.2 (26-34) pg MCHC 34.3 (32-36) g/dl RDW 12.4 (11.5-14.5) % Plt Count 291 (150-375) k/mm3 MPV 10.3 (7.4-10.4) fl Immature Gran % (Auto) 0.6 H (0-0.5) % Neut % (Auto) 72.4 (45.5-73.1) % Lymph % (Auto) 19.9 (18.3-44.2) % Lucas % (Auto) 4.6 (2.6-8.5) % Eos % (Auto) 2.1 (0-4.4) % Baso % (Auto) 0.4 (0.2-1.2) % Lymph # (Auto) 2.42 (0.9-3.2) K/mm3 Lucas # (Auto) 0.6 (0.1-0.6) K/mm3 Eos # (Auto) 0.3 (0-0.3) K/mm3 Baso # (Auto) 0.1 (0.0-0.1) K/mm3 Abs Immat Gran (auto) 0.07 H (0.00-0.031) K/mm3 Absolute Neuts (auto) 8.8 H (1.3-6.7) K/mm3 Absolute Nucleated RBC 0.000 (0.0-0.012) K/mm3 Nucleated RBC % 0.0 (0.0-0.2) % Sodium 135 L (137-145) mmol/L Potassium 3.7 (3.4-5.0) mmol/L Chloride 100 (98-107) mmol/L Carbon Dioxide 26 (22-30) mmol/L Anion Gap 9 (4-12) mmol/L BUN 10 (7-17) mg/dL Creatinine 0.55 L (0.7-1.0) mg/dL Estim Creat Clear Calc Not Reportable Estimated GFR > 60 (59 - ) Glucose 128 H (65-110) mg/dL Calcium 9.1 (8.4-10.2) mg/dL Total Bilirubin 0.4 (0.2-1.3) mg/dL AST 24 (14-36) U/L ALT 18 (6-35) U/L Alkaline Phosphatase 55 (38-126) U/L Total Protein 7.8 (6.3-8.2) g/dL Albumin 4.4 (3.5-5.1) g/dL Urine Color Yellow (Yellow) Urine Appearance Clear (Clear) Urine pH 7.0 (5.0-9.0) Ur Specific [place] 1.013 (1.001-1.035) Urine Protein Negative (Negative) mg/dL Urine Glucose (UA) Negative (Negative) mg/dL Urine Ketones Negative (Negative) mg/dL Ur Blood (Man) Negative (Negative) Urine Nitrate Negative (Negative) Urine Bilirubin Negative (Negative) Urine Urobilinogen 0.2 (<2.0) mg/dL Leukocyte Esterase Rfl Negative (Negative) [place]/UL POC Urine HCG, Qual Negative (Negative) Imaging Data Radiologist's impression: Impressions Abdomen/Pelvis CT 06/11/25 15:31 IMPRESSION: Hepatomegaly. 9 cm simple appearing right adnexal cyst associated with the right ovary. No twisting of the right ovarian vascular pedicle to suggest torsion. Consider transabdominal and endovaginal pelvic ultrasound for further characterization. Pelvic/Transvag US 06/11/25 17:35 IMPRESSION: No sonographic evidence of torsion. 8.5 cm right ovarian cyst, likely large functional/follicular cyst, recommend sonographic follow-up in 2-months for resolution/3 characterization. Discharge Plan Discharge Clinical Impression: Ovarian cyst Patient Disposition: Home Condition: Stable Instructions: Antibiotic Form, Ovarian Cyst (ED) Additional Instructions: Ibuprofen for pain control. [place] as needed for additional pain control. Have close follow-up with OB Gyne. If you have any worsening symptoms then please call or return to the emergency department. Patient Language: Guyanese Prescriptions: New hydrocodone-acetaminophen 7.5-325 mg tablet 1 tablet PO Q8H PRN (Reason: pain) Qty: 14 0RF No Action clindamycin HCl 300 mg capsule 300 mg PO Q6H 7 Days Qty: 28 0RF nitrofurantoin monohyd/m-cryst [Macrobid] 100 mg capsule 100 mg PO Q12H 7 Days Qty: 14 0RF Rx Instructions: must administer with a meal/food Follow-up/Referrals: Brandy,LUIS Osei [Primary Care Provider] - Lela Nguyen MD [Physician] -
[2025-06-11] MEDS: HYDROcodone/acetaminophen (*CRX) 10-325 MG TABLET 1 TAB PO (17:49)
== END 2025-06-11 18:13 | disposition home or self-care (01) ==
PROVIDERS: Student in an Organized Health Care Education/Training Program; Emergency Provider Emergency Medicine; PCP Registered Nurse
DX: N83.201 Unspecified ovarian cyst, right side (principal); E78.5 Hyperlipidemia, unspecified; I10 Essential (primary) hypertension; F41.9 Anxiety disorder, unspecified; R16.0 Hepatomegaly, not elsewhere classified
CPT/HCPCS: 36415; 74177; 76830; 76856; 80053; 81003; 81025; 85025; 96361; 96374; 96376; 99284; A9270; J1171; J7120; Q9967